=== PATIENT | male | born 1985 | race Caucasian/White ===

== ENCOUNTER 2023-02-01 22:30 | Emergency (ER) | payer OTHER, MEDICAID | END 2023-02-02 00:39 | disposition left against medical advice (07) | LOC: MED 22:30 | DX: R50.9 Fever, unspecified (principal); Z53.21 Procedure and treatment not carried out due to patient leaving prior to being seen by health care provider ==

== ENCOUNTER 2023-02-12 09:10 | Emergency (ER) | payer OTHER, MEDICAID ==
[~2023-02-12] VITALS: Ht 162.6 cm; Wt 57.6 kg
[2023-02-12 09:42] VITALS: BP 155/82; PULSE 95; RESP 20; TEMP 101; O2SAT 95
[2023-02-12 11:15] VITALS: BP 155/82; PULSE 95; RESP 20; TEMP 101
[2023-02-12 11:26] VITALS: O2SAT 95
[2023-02-12] MEDS ORDERED: ACETAMINOPHEN 325 MG TAB ONE (11:37)
[2023-02-12] MEDS ORDERED: ACETAMINOPHEN EXTRA STRENGTH 500 MG TAB PO ONE (11:40)
[2023-02-12] MEDS ORDERED: PRED20TA5 PO (12:18)
[2023-02-12] MEDS ORDERED: AZIT250T4 PO (12:18)
== END 2023-02-12 12:22 | disposition home or self-care (01) ==
LOC: MED 09:10
DX: J18.9 Pneumonia, unspecified organism (principal); Z79.899 Other long term (current) drug therapy
CPT/HCPCS: 71045; 99283

== ENCOUNTER 2023-02-17 20:31 | Emergency (ER) | payer OTHER, MEDICAID ==
[~2023-02-17] VITALS: Ht 167.6 cm; Wt 70.8 kg
[~2023-02-17 20:31] MED LIST: AZIT250T4 PO; PRED20TA5 PO
[2023-02-17 20:35] VITALS: BP 126/75; PULSE 111; RESP 18; TEMP 103.3; O2SAT 96
[2023-02-17] MEDS ORDERED: ACETAMINOPHEN EXTRA STRENGTH 500 MG TAB PO ONE (20:40)
[2023-02-17 21:00] LABS: APPEARANCE,URINE CLEAR (CLEAR); BILIRUBIN,URINE NEGATIVE (NEGATIVE); BLOOD, URINE NEGATIVE (NEGATIVE); COLOR,URINE YELLOW (YELLOW); LEUKOCYTE ESTERASE ,URINE NEGATIVE (NEGATIVE); NITRITE, URINE NEGATIVE (NEGATIVE); PROTEIN,URINE TRACE (NEGATIVE); UGLUCOSE NEGATIVE (NEGATIVE); UROBILINOGEN,URINE 0.2 EU/dL (0.2 - 1)
[2023-02-17 21:05] LABS: BACTERIA,URINE None Seen /HPF (None Seen); MUCUS,URINE None Seen /LPF (None Seen); RBC,URINE 0-5 /HPF (0-5); SQUAMOUS EPITHELIAL CELL,UR 0-3 (FEW) /LPF (0-3 (FEW)); TRICHOMONAS,URINE None Seen /HPF (None Seen); WBC,URINE 0-5 /HPF (0-5); YEAST,URINE None Seen /HPF (None Seen)
[2023-02-17 21:23] LABS: FLU A ANTIGEN negative (NEGATIVE); FLU B ANTIGEN negative (NEGATIVE)
[2023-02-17] MEDS ORDERED: NACL 0.9% 2,000 ML IV ONE (22:40)
[2023-02-17] MEDS ORDERED: cefTRIAXone 1,000 MG VIAL ONE (23:07)
[2023-02-17 23:34] LABS: BASOPHILS % (AUTO) 0.1 % (0.0-2.0); HEMOGLOBIN 12.6 g/dL (12.0-18.0); LYMPHOCYTES # (AUTO) 0.3 K/uL (2.0-11.5); LYMPHOCYTES % (AUTO) 2.2 % (20.5-51.1); MEAN CORPUSCULAR HEMOGLOBIN 29 pg (27-31); MEAN CORPUSCULAR HGB CONC 33 g/dL (33-37); MONOCYTES # (AUTO) 0.6 K/uL (0.8-1.0); MONOCYTES % (AUTO) 4.2 % (1.7-9.3); NEUTROPHILS # (AUTO) 13.4 K/uL (1.8-7.7); PLATELET COUNT (AUTO) 439 K/uL (140-450); RED BLOOD CELL COUNT(AUTO) 4.37 MIL/uL (4.20-6.10); RED CELL DISTRIBUTION WIDTH 14.3 % (11.6-13.7); WHITE BLOOD COUNT (AUTO) 14.4 K/uL (4.8-10.8)
[2023-02-17 23:35] VITALS: O2SAT 96
[2023-02-17 23:59] LABS: NEUTROPHILS % (AUTO) 93.5 % (42.2-75.2)
[2023-02-18 00:01] LABS: ALANINE AMINOTRANSFERASE 143 U/L (12-78); ALBUMIN 2.3 g/dL (3.4-5.0); ALKALINE PHOSPHATASE 125 U/L (50-136); ANION GAP 11.2 (8-16); ASPARTATE AMINOTRANSFERASE 79 U/L (15-37); CALCIUM 8.2 mg/dL (8.5-10.1); CARBON DIOXIDE 26.9 mmol/L (21-32); CHLORIDE 98 mmol/L (98-107); CREATININE 0.9 mg/dL (0.6-1.3); GFR ARICAN-AMERICAN 121 mL/min (>90); GFR NON ARICAN-AMERICAN 100 mL/min (>90); GLUCOSE 138 mg/dL (74-106); POTASSIUM 4.1 mmol/L (3.5-5.1); SODIUM SERUM 132 mmol/L (136-145); TOTAL BILIRUBIN 0.5 mg/dL (0.0-1.0); TOTAL PROTEIN, SERUM 6.9 g/dL (6.4-8.2); UREA NITROGEN, BLOOD 17 mg/dL (7-18)
[2023-02-18 01:07] LABS: AMPHETAMINE, URINE NEGATIVE ng/ml (NEG <=1000); BARBITURATE, URINE NEGATIVE ng/ml (NEG <=200); BENZODIAZEPINE, URINE NEGATIVE ng/mL (NEG <=200); CANNABINOID, URINE NEGATIVE ng/mL (NEG <=50); COCAINE, URINE NEGATIVE ng/mL (NEG <=300); OPIATE, URINE NEGATIVE ng/mL (NEG <=2000); PHENCYCLIDINE SCREEN,URINE NEGATIVE ng/mL (NEG <=25)
[2023-02-18 01:36] VITALS: O2SAT 94
[2023-02-18 01:38] VITALS: BP 106/47; PULSE 59; RESP 24; TEMP 97.5; O2SAT 93
[2023-02-18] MEDS ORDERED: ACET-10509 PO (02:10)
[2023-02-18] MEDS ORDERED: LEVO750T75 PO (02:11)
[2023-02-18] MEDS ORDERED: ROB PO (02:11)
== END 2023-02-18 02:42 | disposition home or self-care (01) ==
LOC: MED 20:31
DX: J18.9 Pneumonia, unspecified organism (principal); Z20.822 Contact with and (suspected) exposure to COVID-19; Z79.899 Other long term (current) drug therapy
CPT/HCPCS: 36415; 71045; 80053; 80305; 81001; 83605; 84484; 85025; 87040; 87086; 87426; 87804; 96365; 99285; J0696; J7030

== ENCOUNTER 2023-02-22 11:02 | Emergency (ER) | payer OTHER, MEDICAID ==
[~2023-02-22] VITALS: Ht 167.6 cm; Wt 59.0 kg
[~2023-02-22 11:02] MED LIST changes: +ACET-10509 PO; +LEVO750T75 PO; +ROB PO
[2023-02-22 11:11] VITALS: BP 130/64; PULSE 104; RESP 18; TEMP 100; O2SAT 95
[2023-02-22 11:15] VITALS: O2SAT 96
== END 2023-02-22 12:05 | disposition home or self-care (01) ==
LOC: MED 11:02
DX: J18.9 Pneumonia, unspecified organism (principal); Z79.899 Other long term (current) drug therapy; Z79.2 Long term (current) use of antibiotics
CPT/HCPCS: 99281

== ENCOUNTER 2023-02-24 09:49 | Emergency (ER) | payer OTHER, MEDICAID ==
[~2023-02-24] VITALS: Ht 170.2 cm; Wt 68.0 kg
[2023-02-24 09:57] VITALS: BP 123/80; PULSE 94; RESP 18; TEMP 97.8
[2023-02-24 10:33] VITALS: O2SAT 97
[2023-02-24] MEDS ORDERED: PIPERACILLIN/TAZOBACTAM 3.375 GM in DEXTROSE 5% 50 ML IV ONE (11:20)
[2023-02-24] MEDS ORDERED: VANCOMYCIN 1,000 MG in DEXTROSE 5% 250 ML IV ONE (11:20)
[2023-02-24] MEDS ORDERED: PIPERACILLIN/TAZOBACTAM 3.375 GM VIAL IV ONE (11:33)
[2023-02-24] MEDS ORDERED: VANCOMYCIN 1,000 MG VIAL ONE (11:33)
[2023-02-24 12:02] LABS: FLU A ANTIGEN negative (NEGATIVE); FLU B ANTIGEN NEGATIVE (NEGATIVE)
[2023-02-24 12:35] VITALS: O2SAT 97
[2023-02-24 13:13] LABS: BASOPHILS % (AUTO) 0.5 % (0.0-2.0); HEMATOCRIT 36.7 % (36-52); HEMOGLOBIN 12.4 g/dL (12.0-18.0); LYMPHOCYTES # (AUTO) 0.9 K/uL (2.0-11.5); LYMPHOCYTES % (AUTO) 8.5 % (20.5-51.1); MEAN CORPUSCULAR HEMOGLOBIN 29 pg (27-31); MEAN CORPUSCULAR HGB CONC 34 g/dL (33-37); MEAN CORPUSCULAR VOLUME 86.8 fL (80-94); MONOCYTES # (AUTO) 1.2 K/uL (0.8-1.0); MONOCYTES % (AUTO) 11.1 % (1.7-9.3); NEUTROPHILS # (AUTO) 8.8 K/uL (1.8-7.7); NEUTROPHILS % (AUTO) 79.9 % (42.2-75.2); PLATELET COUNT (AUTO) 315 K/uL (140-450); RED BLOOD CELL COUNT(AUTO) 4.23 MIL/uL (4.20-6.10); RED CELL DISTRIBUTION WIDTH 13.8 % (11.6-13.7)
[2023-02-24 13:27] LABS: ANION GAP 9.9 (8-16); CALCIUM 8.5 mg/dL (8.5-10.1); CARBON DIOXIDE 29.6 mmol/L (21-32); CREATININE 0.7 mg/dL (0.6-1.3); INR 1.11 (0.8-1.2); PARTIAL THROMBOPLASTIN TIME 27.4 secs (22-35.6); POTASSIUM 3.5 mmol/L (3.5-5.1); PROTHROMBIN TIME 11.5 secs (10.8-13.4); TOTAL BILIRUBIN 0.9 mg/dL (0.0-1.0)
[2023-02-24 13:29] LABS: LACTIC ACID 1.3 mmol/L (0.4-2.0)
[2023-02-24 14:43] VITALS: O2SAT 95
[2023-02-24 16:46] VITALS: O2SAT 97
[2023-02-24 18:18] VITALS: BP 129/79; PULSE 86; RESP 18; O2SAT 97
== END 2023-02-24 18:18 | disposition short-term general hospital (02) ==
LOC: MED 09:49
DX: J16.8 Pneumonia due to other specified infectious organisms (principal); Z20.822 Contact with and (suspected) exposure to COVID-19; F15.90 Other stimulant use, unspecified, uncomplicated; Z79.899 Other long term (current) drug therapy
CPT/HCPCS: 36415; 71046; 80053; 82550; 83605; 85025; 85610; 85730; 87040; 87426; 87804; 96365; 96367; 99285; J2543; J3370

== ENCOUNTER 2023-04-04 17:29 | Emergency (ER) | payer OTHER, MEDICAID ==
[~2023-04-04] VITALS: Ht 167.6 cm; Wt 49.4 kg
[~2023-04-04 17:29] MED LIST changes: -AZIT250T4 PO; -LEVO750T75 PO; -PRED20TA5 PO; -ROB PO
[2023-04-04 18:06] VITALS: BP 99/54; PULSE 109; RESP 21; TEMP 97.8; O2SAT 99
[2023-04-04 19:22] LABS: BASOPHILS # (AUTO) 0.1 K/uL (0.00-0.22); BASOPHILS % (AUTO) 0.3 % (0.0-2.0); EOSINOPHILS % (AUTO) 0.1 % (0.0-4.0); HEMATOCRIT 28.1 % (36-52); HEMOGLOBIN 9.3 g/dL (12.0-18.0); LYMPHOCYTES # (AUTO) 2.1 K/uL (2.0-11.5); LYMPHOCYTES % (AUTO) 12.2 % (20.5-51.1); MEAN CORPUSCULAR HEMOGLOBIN 28 pg (27-31); MEAN CORPUSCULAR HGB CONC 33 g/dL (33-37); MEAN CORPUSCULAR VOLUME 83.9 fL (80-94); MONOCYTES # (AUTO) 1.6 K/uL (0.8-1.0); MONOCYTES % (AUTO) 9.4 % (1.7-9.3); NEUTROPHILS # (AUTO) 13.5 K/uL (1.8-7.7); PLATELET COUNT (AUTO) 379 K/uL (140-450); RED BLOOD CELL COUNT(AUTO) 3.35 MIL/uL (4.20-6.10); RED CELL DISTRIBUTION WIDTH 15.7 % (11.6-13.7); WHITE BLOOD COUNT (AUTO) 17.3 K/uL (4.8-10.8)
[2023-04-04 19:23] VITALS: TEMP 97.8
[2023-04-04 19:49] LABS: FLU A ANTIGEN negative (NEGATIVE); FLU B ANTIGEN NEGATIVE (NEGATIVE)
[2023-04-04 19:50] LABS: ALBUMIN 2.7 g/dL (3.4-5.0); ANION GAP 11.1 (8-16); CALCIUM 8.4 mg/dL (8.5-10.1); CARBON DIOXIDE 27.1 mmol/L (21-32); CREATININE 1.4 mg/dL (0.6-1.3); POTASSIUM 3.2 mmol/L (3.5-5.1); TOTAL BILIRUBIN 0.6 mg/dL (0.0-1.0); TOTAL PROTEIN, SERUM 7.2 g/dL (6.4-8.2)
[2023-04-04] MEDS ORDERED: BENZ150C2 PO (20:10)
[2023-04-04 20:19] VITALS: BP 110/57; PULSE 87; RESP 16; O2SAT 97
== END 2023-04-04 20:19 | disposition home or self-care (01) ==
LOC: MED 17:29
DX: J18.9 Pneumonia, unspecified organism (principal); Z20.822 Contact with and (suspected) exposure to COVID-19; Z79.899 Other long term (current) drug therapy
CPT/HCPCS: 36415; 71045; 80053; 83605; 85025; 87040; 99285